=== PATIENT | female | born 1990 | race Hispanic/Latino ===

== ENCOUNTER 2017-09-30 14:51 | Emergency (ER) | payer OTHER ==
[2017-09-30 15:31] VITALS: BP 115/78; PULSE 90; RESP 18; TEMP 98.1; O2SAT 100
[2017-09-30] MEDS ORDERED: Sodium Chloride 0.9% 1,000 ML IV ONE (16:08)
[2017-09-30 16:36] LABS: BASO % 0.3 % (0.0-2.0); EOS % 0.3 % (0.0-4.0); HEMATOCRIT 41.4 % (34.0-47.0); LYMPH # 0.9 K/uL (1.0-4.3); LYMPH % 16.9 % (20.0-40.0); MEAN CELL VOLUME 85.2 fl (81.0-99.0); MEAN CORPUSCULAR HEMOGLOBIN 28.6 pg (27.0-31.0); MEAN CORPUSCULAR HGB CONC 33.5 g/dL (33.0-37.0); MEAN PLATELET VOLUME 8.6 fl (7.2-11.7); MONO # 0.7 K/uL (0.0-0.8); NEUT # 3.8 K/uL (1.8-7.0); NEUT % 69.5 % (50.0-75.0); RED CELL DISTRIBUTION WIDTH 13.1 % (11.5-14.5); WHITE BLOOD COUNT 5.5 K/uL (4.8-10.8)
[2017-09-30 16:47] LABS: ALB/GLOB RATIO 1.5 (1.0-2.1); ALKALINE PHOSPHATASE 47 U/L (38-126); ALT/SGPT 36 U/L (9-52); AMYLASE 72 U/L (30-110); AST/SGOT 19 U/L (14-36); BILIRUBIN,TOTAL 0.6 mg/dl (0.2-1.3); BLOOD UREA NITROGEN 13 mg/dl (7-17); CALCIUM 9.1 mg/dL (8.4-10.2); CARBON DIOXIDE 24 mmol/L (22-30); CHLORIDE 104 mmol/L (98-107); GFR AFRICAN-AMERICAN > 60; GLUCOSE,RANDOM 87 mg/dL (65-105); LIPASE 85 U/L (23-300); SODIUM 137 mmol/l (132-148); TOTAL PROTEIN 7.4 G/DL (6.3-8.2)
--- NOTE | 2017-09-30 18:17 | CT ---
PROCEDURE: CT scan of the abdomen pelvis dated 09/30/2017. HISTORY: Left flank focal pain r/o renal stone COMPARISON: No prior study available comparison TECHNIQUE: Contiguous axial images of the abdomen and pelvis performed without oral or intravenous contrast material. . Coronal and Sagittal reformats generated. Radiation dose: Total exam DLP = 650.43 mGy-cm. This CT exam was performed using one or more of the following dose reduction techniques: Automated exposure control, adjustment of the mA and/or kV according to patient size, and/or use of iterative reconstruction technique. FINDINGS: LOWER THORAX: Lung bases clear. No infiltrate effusion or basilar pneumothorax. There is a tiny hiatal hernia. Heart size within range of normal. No significant pericardial effusion. LIVER: Liver exhibits normal size measuring approximately 15.9 cm in CC dimension. No obvious hepatic mass collection or calcification. GALLBLADDER AND BILE DUCTS: Gallbladder is physiologically distended. No evidence of intraluminal gallbladder calculi. PANCREAS: Pancreas poorly visualized due to relative paucity of retroperitoneal and intraperitoneal fat as well as lack of oral contrast material. No gross pancreatic lesions are identified. SPLEEN: Spleen exhibits normal size and attenuation pattern without mass collection or calcification. ADRENALS: There are no adrenal lesions. KIDNEYS AND URETERS: Kidneys demonstrate relatively symmetric size. There is a punctate calcifications seen in the upper/ mid pole collecting system right kidney. No other definitive renal calculus capacious are identified. No evidence of hydronephrosis. BLADDER: The urinary bladder is incompletely distended which may account for minimal wall thickening. Correlation with urinalysis suggested to exclude the possibility of a cystitis. REPRODUCTIVE: The uterus appears grossly unremarkable. Questionable left adnexal cyst measuring approximately 2.0 cm in greatest AP dimension. APPENDIX: Appendix is not seen with any certainty on this study however no obvious inflammatory changes right lower quadrant of the abdomen. BOWEL: Evaluation of the bowel is limited due to the lack of oral contrast material. The stomach is incompletely distended which presumably in part accounts for thick-walled appearance. Possibility of gastritis not excluded. Visualized loops of small bowel exhibit normal contour and relatively normal caliber however there does appear to be fecalized content suggesting fecal retention/constipation and possible mild ileus. Within the low. Stool and air seen throughout the large bowel. PERITONEUM: Unremarkable.. No gross free intraperitoneal air or fluid. LYMPH NODES: Unremarkable. No enlarged lymph nodes. VASCULATURE: No evidence of abdominal aortic or iliac artery aneurysm. BONES: Osseous structures appear grossly intact. OTHER FINDINGS: None. IMPRESSION: Punctate nonobstructing calcification upper/midpole collecting system of right kidney. No evidence of additional calculi or hydronephrosis. Probable small left adnexal cyst. Findings suggest mild fecal retention/constipation with fecalized content and loops small bowel and possible mild ileus.
--- NOTE | 2017-09-30 18:59 | ED PDOC ---
HPI: Abdomen Time Seen by Provider: 09/30/17 15:40 Chief Complaint (Nursing): Abdominal Pain History Per: Patient History/Exam Limitations: no limitations Onset/Duration Of Symptoms: Days (2), Gradual Severity: Mild Location Of Pain/Discomfort: LUQ Quality Of Discomfort: Dull, Aching Associated Symptoms: Nausea, Vomiting, Diarrhea. denies: Fever, Chills, Back Pain, Chest Pain, Constipation, Urinary Symptoms Exacerbating Factors: None Alleviating Factors: None Last Bowel Movement: Yesterday Additional History Per: Patient Additional Complaint(s): c/o generalized abd pain with nausea and diarrhea since yesterday, was seen at an Urgent care center last night. Today started having low back pain. Denies dysuria. Past Medical History Reviewed: Historical Data, Nursing Documentation, Vital Signs Vital Signs: Last Vital Signs Temp 98.1 F 09/30/17 15:26 Pulse 90 09/30/17 15:26 Resp 18 09/30/17 15:26 BP 115/78 09/30/17 15:26 Pulse Ox 100 09/30/17 19:02 - Medical History PMH: Gastritis - Family History Family History: States: Unknown Family Hx - Living Arrangements Living Arrangements: With Family - Social History Current smoker - smoking cessation education provided: No - Home Medications Home Medications: Ambulatory Orders Medication Instructions Recorded Omeprazole Magnesium [Prilosec Otc] 20 mg PO DAILY 09/30/17 - Allergies Allergies/Adverse Reactions: Allergies Allergy/AdvReac Type Severity Reaction Status Date / Time cephalexin [From Keflex] Allergy RASH Verified 09/30/17 15:26 Review of Systems ROS Statement: Except As Marked, All Systems Reviewed And Found Negative Constitutional: Negative for: Fever, Chills Cardiovascular: Negative for: Chest Pain, Palpitations Respiratory: Negative for: Cough, Shortness of Breath Gastrointestinal: Positive for: Abdominal Pain, Diarrhea Genitourinary Female: Negative for: Dysuria Musculoskeletal: Negative for: Neck Pain Neurological: Negative for: Weakness, Numbness Physical Exam - Reviewed Nursing Documentation Reviewed: Yes Vital Signs Reviewed: Yes - Physical Exam Appears: Positive for: Uncomfortable Head Exam: Positive for: ATRAUMATIC, NORMAL INSPECTION, NORMOCEPHALIC Eye Exam: Positive for: Normal appearance, EOMI, PERRL Neck: Positive for: Normal, Painless ROM, Supple Cardiovascular/Chest: Positive for: Regular Rate, Rhythm, Chest Non Tender. Negative for: Edema, Gallop Respiratory: Positive for: Normal Breath Sounds. Negative for: Decreased Breath Sounds, Accessory Muscle Use, Crackles, Rales, Rhonchi, Stridor, Wheezing Pulses-Radial (L): 2+ Pulses-Radial (R): 2+ Gastrointestinal/Abdominal: Positive for: Normal Exam, Bowel Sounds, Soft. Negative for: Tenderness Back: Positive for: Normal Inspection. Negative for: L CVA Tenderness, R CVA Tenderness Extremity: Positive for: Normal ROM. 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 Negative for: Motor/Sensory Deficits, Aphasia, Facial Droop - Laboratory Results Result Diagrams: 09/30/17 16:27 09/30/17 16:27 Urine dip results: Positive for: Blood (tr). Negative for: Leukocyte Esterase, Nitrate, Ketones, Glucose, Bilirubin - ECG O2 Sat by Pulse Oximetry: 100 Pulse Ox Interpretation: Normal - Progress ED Course And Treament: PROCEDURE: CT scan of the abdomen pelvis dated 09/30/2017. HISTORY: Left flank focal pain r/o renal stone COMPARISON: No prior study available comparison TECHNIQUE: Contiguous axial images of the abdomen and pelvis performed without oral or intravenous contrast material. . Coronal and Sagittal reformats generated. Radiation dose: Total exam DLP = 650.43 mGy-cm. This CT exam was performed using one or more of the following dose reduction techniques: Automated exposure control, adjustment of the mA and/or kV according to patient size, and/or use of iterative reconstruction technique. FINDINGS: LOWER THORAX: Lung bases clear. No infiltrate effusion or basilar pneumothorax. There is a tiny hiatal hernia. Heart size within range of normal. No significant pericardial effusion. LIVER: Liver exhibits normal size measuring approximately 15.9 cm in CC dimension. No obvious hepatic mass collection or calcification. GALLBLADDER AND BILE DUCTS: Gallbladder is physiologically distended. No evidence of intraluminal gallbladder calculi. PANCREAS: Pancreas poorly visualized due to relative paucity of retroperitoneal and intraperitoneal fat as well as lack of oral contrast material. No gross pancreatic lesions are identified. SPLEEN: Spleen exhibits normal size and attenuation pattern without mass collection or calcification. ADRENALS: There are no adrenal lesions. KIDNEYS AND URETERS: Kidneys demonstrate relatively symmetric size. There is a punctate calcifications seen in the upper/ mid pole collecting system right kidney. No other definitive renal calculus capacious are identified. No evidence of hydronephrosis. BLADDER: The urinary bladder is incompletely distended which may account for minimal wall thickening. Correlation with urinalysis suggested to exclude the possibility of a cystitis. REPRODUCTIVE: The uterus appears grossly unremarkable. Questionable left adnexal cyst measuring approximately 2.0 cm in greatest AP dimension. APPENDIX: Appendix is not seen with any certainty on this study however no obvious inflammatory changes right lower quadrant of the abdomen. BOWEL: Evaluation of the bowel is limited due to the lack of oral contrast material. The stomach is incompletely distended which presumably in part accounts for thick-walled appearance. Possibility of gastritis not excluded. Visualized loops of small bowel exhibit normal contour and relatively normal caliber however there does appear to be fecalized content suggesting fecal retention/ constipation and possible mild ileus. Within the low. Stool and air seen throughout the large bowel. PERITONEUM: Unremarkable.. No gross free intraperitoneal air or fluid. LYMPH NODES: Unremarkable. No enlarged lymph nodes. VASCULATURE: No evidence of abdominal aortic or iliac artery aneurysm. BONES: Osseous structures appear grossly intact. OTHER FINDINGS: None. IMPRESSION: Punctate nonobstructing calcification upper/midpole collecting system of right kidney. No evidence of additional calculi or hydronephrosis. Probable small left adnexal cyst. Findings suggest mild fecal retention/constipation with fecalized content and loops small bowel and possible mild ileus. advise miralax. c;ose f/u with gi or pmd. Re-evaluation Time: 18:59 Condition: Improved Disposition - Clinical Impression Clinical Impression: Abdominal pain in female, Constipation - Patient ED Disposition Is Patient to be Admitted: No Counseled Patient/Family Regarding: Studies Performed, Diagnosis, Need For Followup, Rx Given - Disposition Disposition: Routine/Home Disposition Time: 19:01 Condition: GOOD
== END 2017-09-30 19:39 | disposition home or self-care (01) ==
LOC: H.ER 14:51 → UNDOADMIN 18:04 → H.ERHOLD 18:04
DX: R10.2 Pelvic and perineal pain (principal); K59.00 Constipation, unspecified
CPT/HCPCS: 74176; 80053; 81025; 82150; 83690; 85025; 96361; 96374; 99283; J7040